=== PATIENT | female | born 1995 | race Caucasian/White ===

== ENCOUNTER → 2017-09-19 | Outpatient (CLI) | payer OTHER ==
[~2017-09-19] MED LIST: LEVOTHYROXIN0.025 M1 PO; MACROBID100 M1 PO; NOVOLIN N100 U/ML SC; NOVOLOG10 ML IV
--- NOTE | ~2017-09-19 | EKG ---
[place], [place] ELECTROCARDIOGRAM REPORT NAME: KYRA BUSBY UNIT #: [id number] ROOM: DOCTOR: JANETT WADE MD BIRTHDATE: [birth year] DOS: 09/19/2017 TIME: 12:42:42 RATE AND RHYTHM: Normal sinus rhythm at 81 beats per minute. GA interval 167 milliseconds, QRS duration 102 milliseconds. Corrected QT interval is 411 milliseconds, QRS axis is -10. IMPRESSION: 1. Normal sinus rhythm. 2. Low voltage in precordial leads. 3. Essentially normal EKG. JANETT WADE MD CM:EKGRPT:ELECTROCARDIOGRAM REPORT [id number] JANETT WADE MD
== END | disposition home or self-care (01) ==
LOC: LAB 12:08
DX: I45.6 Pre-excitation syndrome (principal); E10.9 Type 1 diabetes mellitus without complications

== ENCOUNTER 2019-04-19 15:48 | Inpatient (IN) | payer OTHER ==
[~2019-04-19] VITALS: Ht 167.6 cm; Wt 60.4 kg
[~2019-04-19 15:48] MED LIST changes: -LEVOTHYROXIN0.025 M1 PO; +NOVOLIN 70100 UNIT/1 SQ; -NOVOLOG10 ML IV; +NOVOLOG10 ML SQ; +SEPTDS PO; +Synthroid,Levo50 MCG PO
[2019-04-19 15:52] VITALS: BP 142/86
[2019-04-19 16:27] LABS: HEMATOCRIT 42.8 % (37.0-47.0); HEMOGLOBIN 14.8 g/dl (12.0-16.0); MEAN CELL VOLUME 91.1 fl (81.0-99.0); MEAN CORPUSCULAR HGB 31.5 pg (27.0-31.0); MEAN CORPUSCULAR HGB CONC 34.6 g/dl (33.0-37.0); MEAN PLATELET VOLUME 11.3 fl (9.6-12.3); PLATELET COUNT AUTOMATED 299 10*3/uL (130-400); RED CELL DISTRI WIDTH 11.9 % (0-14.5); WHITE BLOOD COUNT 26.1 10*3/uL (4.8-10.8)
[2019-04-19 16:47] LABS: PLATELET SUFFICIENCY NORMAL (NORMAL); TOTAL CELLS COUNTED 100 #CELLS; VACUOLATION OF NEUTROPHILS SLIGHT
[2019-04-19 16:49] VITALS: BP 126/78
[2019-04-19 17:04] LABS: ALBUMIN 4.3 gm/dl (3.1-4.5); CREATININE 1.37 mg/dL (0.55-1.02); POTASSIUM 4.4 mmol/L (3.5-5.1); TOTAL PROTEIN 8.3 gm/dL (6.4-8.2)
--- NOTE | 2019-04-19 17:23 | NUR ---
PT AWARE THAT REQUIRE A URINE SAMPLE FOR ANALYSIS,PT RESTING IN EXAM BED,SAFETY PRECAUTIONS INTACT AND CALL LIGHT WITHIN REACH.
[2019-04-19 17:51] LABS: ABG O2 SATURATION 98.1 % (95-97); ARTERIAL BLOOD GAS PCO2 15.2 mmHg (35-45); ARTERIAL BLOOD GAS PH 7.284 (7.35-7.45)
[2019-04-19 17:53] LABS: ABG BASE EXCESS -18.3 mmol/L (-2.0-2.0)
[2019-04-19 18:36] VITALS: BP 106/76
[2019-04-19 18:40] VITALS: BP 113/69
[2019-04-19 18:40] LABS: BILIRUBIN NEGATIVE (NEGATIVE); BLOOD 1+ (NEGATIVE); CLARITY CLEAR (CLEAR); COLOR YELLOW (YELLOW); GLUCOSE 2+ (NEGATIVE); KETONE 3+ (NEGATIVE); LEUKO ESTERASE TRACE (NEGATIVE); NITRITE NEGATIVE (NEGATIVE); PH 5.5 (5.0-9.0); SPECIFIC GRAVITY >= 1.030 (1.005-1.030); UROBILINOGEN 0.2 E.U./dl (0.2-1.0)
--- NOTE | 2019-04-19 18:40 | NUR ---
A 23, admitted to 5E, under the services of JANETT Bender MD with a diagnosis of DKA. Chief complaint is HYPERGLYCEMIA. Patient arrived via bed from ER. Monitor applied. Initial assessment completed. Vital signs taken and recorded. JANETT BENDER MD notified of admission to the unit. Orders received. See assessment for past medical history, medications and allergies. Patient and/or family oriented to unit. Clothing/patient valuable form completed. JUSTINA KEENE
--- NOTE | 2019-04-19 18:45 | NUR ---
PATIENT REFUSING TO PLACE STATION CAPTAIN ON AT THIS TIME, WANTS TO CHANGE IN TO [place]. INFORMED TO INFORM NURSE ONCE DONE, PRIVACY GIVEN
--- NOTE | 2019-04-19 18:45 | NUR ---
FINGERSTICK BGM TAKEN AT THIS TIME OF 344. MADE AWARE.
[2019-04-19 18:56] LABS: BACTERIA 1+
--- NOTE | 2019-04-19 18:59 | NUR ---
INFORMED OF PATIENT HOME MEDICATIONS ARE VERIFIED BY PATIENT. PATIENT REQUESTING DIET, DR PIPER STATED AT THIS TIME ONLY SIPS OF WATER WITH MEDS AND ICE CHIPS.
--- NOTE | 2019-04-19 19:30 | NUR ---
ASSUMED CARE OF PATIENT. PATIENT CURRENTLY ON AN INSULIN DRIP AT 5 UNIT/HR. PATIENT APPEARS TIRED AND HAS GENERALIZED DISCOMFORT UPON ASSESSMENT. PATIENT ON THE MONITOR, HOB ELEVATED. NEW 22G IV ESTABLISHED IN THE [place]IRE[place].
[2019-04-19 20:00] VITALS: BP 113/69
--- NOTE | 2019-04-19 20:00 | NUR ---
INSULIN DRIP INCREASED TO 6 UNIT/HR PER PROTOCOL. IV FLUIDS STARTED AT THIS TIME.
--- NOTE | 2019-04-19 21:07 | NUR ---
INSULIN GTT INCREASED TO 7 UNIT/HR PER PROTOCOL.
[2019-04-19 22:55] LABS: BUN 28 mg/dl (7-24); CHLORIDE 109 mmol/L (98-107); CREATININE 1.08 mg/dL (0.55-1.02); POTASSIUM 3.8 mmol/L (3.5-5.1); SODIUM 136 mmol/L (136-145)
[2019-04-20] VITALS: BP 107/65
[2019-04-20 02:02] LABS: BUN 26 mg/dl (7-24); CHLORIDE 110 mmol/L (98-107); CREATININE 1.03 mg/dL (0.55-1.02); POTASSIUM 3.9 mmol/L (3.5-5.1); SODIUM 137 mmol/L (136-145)
[2019-04-20 07:12] LABS: BASO % 0.1 % (0.0-1.0); EOS % 0.1 % (1.0-4.0); HEMATOCRIT 37.8 % (37.0-47.0); HEMOGLOBIN 13.3 g/dl (12.0-16.0); LYMPH # 1.2 10*3/uL (1.3-4.4); LYMPH % 9.1 % (27.0-41.0); MEAN CELL VOLUME 89.6 fl (81.0-99.0); MEAN CORPUSCULAR HGB 31.5 pg (27.0-31.0); MEAN CORPUSCULAR HGB CONC 35.2 g/dl (33.0-37.0); MEAN PLATELET VOLUME 10.9 fl (9.6-12.3); MONO % 7.7 % (3.0-9.0); NEUT # 11.2 10*3/uL (2.3-7.9); NEUT % 82.4 % (47.0-73.0); PLATELET COUNT AUTOMATED 254 10*3/uL (130-400); RED BLOOD COUNT 4.22 10*6/uL (4.10-5.10); WHITE BLOOD COUNT 13.6 10*3/uL (4.8-10.8)
[2019-04-20 07:26] LABS: BUN 21 mg/dl (7-24); CHLORIDE 110 mmol/L (98-107); CREATININE 0.94 mg/dL (0.55-1.02); PHOSPHOROUS 1.2 mg/dL (2.5-4.9); POTASSIUM 3.9 mmol/L (3.5-5.1); SODIUM 135 mmol/L (136-145)
--- NOTE | 2019-04-20 07:46 | NUR ---
INSULIN DRIP STOPPED PER DR. WADE ORDER. BSG AT 7-79, MADE AWARE ANION GAP IS 4 AT THIS TIME. HAD PT ORDER BREAKFAST. WILL RECHECK IN 1 HOUR. MOTHER AT HER SIDE. CALL LIGHT IN REACH.
--- NOTE | 2019-04-20 09:00 | NUR ---
Busperson in to talk to patient. Patient states lives at home with her mother. There are 14 steps in the home. Physician: Dr. Narinder Doe [facility]acy: [facility] Home health services: none Patient's level of ADLs: INDEPENDENT Patient has working utilities: yes DME: none Follow-up physician's appointment after d/c: she prefers to make her own follow up appt after discharge Does patient want to access PORTAL?: no Discharge plan discussed with patient. She lives at home with her mother. She is independent in her ADLs and ambulation. Discussed home health care services and she denies any home needs at this time. When medically stable she will be discharged to home. CHRISTIAN RIVERO
--- NOTE | 2019-04-20 09:00 | NUR ---
BSG-165, SEE EMAR. IVF INFUSING WITH NO PROBLEM. PT ATE MAYBE 10 MINUTES PRIOR. SPOKE WITH DR. WADE AWARE OF BSG. ORDERED PT HUMULIN N. CHECK BSG EVERY 2 HOURS AND CALL WITH RESULT. SKIN W/D. NO C/O A TTHIS TIME.
--- NOTE | 2019-04-20 09:30 | NUR ---
PT TOLERATED ROUTINE INSULIN. CALL LIGHT IN REACH. SKIN W/D.
--- NOTE | 2019-04-20 10:00 | NUR ---
LAB WORK DRAWN AND ANION GAP IS AT 9. BLOOD SUGAR 243.
[2019-04-20 10:32] LABS: BUN 19 mg/dl (7-24); CHLORIDE 107 mmol/L (98-107); CREATININE 0.97 mg/dL (0.55-1.02); POTASSIUM 4.2 mmol/L (3.5-5.1); SODIUM 133 mmol/L (136-145)
--- NOTE | 2019-04-20 11:30 | NUR ---
IV STOPPED AT THIS ITME.
[2019-04-20 12:00] VITALS: BP 110/76
--- NOTE | 2019-04-20 12:00 | NUR ---
DINESH WADE WITH BSG-293. START NS @80 AND GIVE NOVOLOG 10 UNITS SUB C
[2019-04-20 12:19] LABS: BUN 22 mg/dl (7-24); CHLORIDE 106 mmol/L (98-107); CREATININE 0.99 mg/dL (0.55-1.02); POTASSIUM 4.3 mmol/L (3.5-5.1); SODIUM 135 mmol/L (136-145)
--- NOTE | 2019-04-20 14:00 | NUR ---
PT RESTING IN BED. STATES SHE ATE HER LUNCH. TOLERATED ROUTINE MED WITH NO PROBLEM. IVF INFUSING WITH NO PROBLEM. SKIN W/D. CALL LIGHT IN REACH.
[2019-04-20 16:00] VITALS: BP 119/73
--- NOTE | 2019-04-20 16:28 | NUR ---
BSG 167 WITH NS INFUSING. NO COMPLAINTS VOICED. CALL LIGHT IN REACH.
[2019-04-20 19:35] LABS: BUN 18 mg/dl (7-24); CHLORIDE 108 mmol/L (98-107); CREATININE 0.78 mg/dL (0.55-1.02); POTASSIUM 3.8 mmol/L (3.5-5.1); SODIUM 136 mmol/L (136-145)
[2019-04-20 20:00] VITALS: BP 121/68
--- NOTE | 2019-04-20 20:54 | NUR ---
DR. WADE NOTIFIED OF PT'S GAP OF 10. T.O. RCVD TO CONTINUE IVF, BMP IN AM, AND HUMALOG INSULIN 5 UNITS SQ NOW.
--- NOTE | 2019-04-20 23:15 | NUR ---
BEDSIDE REPORT RECEIVED FROM DAYLIGHT NURSE. PT ASLEEP AT THIS TIME. RESPIRATIONS EASY AND UNLABORED. IV FLUIDS INFUSING INTO PT'S IV WITHOUT DIFFICULTY. PT DEMONSTRATES NO SIGN OF DISTRESS. CALL LIGHT IN REACH.
[2019-04-21] VITALS: BP 116/73
--- NOTE | 2019-04-21 03:47 | NUR ---
24 HR chart check completed.
[2019-04-21 06:33] LABS: BUN 14 mg/dl (7-24); CHLORIDE 110 mmol/L (98-107); POTASSIUM 3.5 mmol/L (3.5-5.1); SODIUM 140 mmol/L (136-145)
[2019-04-21 12:00] VITALS: BP 125/74
--- NOTE | 2019-04-21 12:20 | NUR ---
Discharge instructions reviewed with patient/family. Patient receptive and verbalizes understanding. Follow-up care arranged. Written instructions given to patient/family. Patient along with her mother were educated on new prescriptions and to follow up with Dr. Doe on Thursday. Patient ambulated from unit with all personal belongings accounted for. ERIC FERRIS
== END 2019-04-21 12:20 | disposition home or self-care (01) | DRG 637 ==
LOC: ED 15:48 → 5E 18:13
PROVIDERS: Emergency Medicine; Internal Medicine; ADMIT Internal Medicine
DX: E13.10 Other specified diabetes mellitus with ketoacidosis without coma (principal); R65.11 Systemic inflammatory response syndrome (SIRS) of non-infectious origin with acute organ dysfunction; N17.9 Acute kidney failure, unspecified; E87.1 Hypo-osmolality and hyponatremia; E03.9 Hypothyroidism, unspecified; Z91.040 Latex allergy status; Z87.440 Personal history of urinary (tract) infections; Z83.3 Family history of diabetes mellitus; Z82.49 Family history of ischemic heart disease and other diseases of the circulatory system; Z83.49 Family history of other endocrine, nutritional and metabolic diseases; Z91.018 Allergy to other foods; Z79.4 Long term (current) use of insulin; Z79.890 Hormone replacement therapy

== ENCOUNTER 2019-04-24 03:27 | Inpatient (IN) | payer OTHER ==
[~2019-04-24] VITALS: Ht 167.6 cm; Wt 62.1 kg
[2019-04-24 03:37] VITALS: BP 138/95
[2019-04-24 04:02] LABS: HEMOGLOBIN 13.2 g/dl (12.0-16.0); MEAN CELL VOLUME 97.9 fl (81.0-99.0); MEAN CORPUSCULAR HGB 31.5 pg (27.0-31.0); MEAN CORPUSCULAR HGB CONC 32.2 g/dl (33.0-37.0); MEAN PLATELET VOLUME 10.8 fl (9.6-12.3); PLATELET COUNT AUTOMATED 420 10*3/uL (130-400); RED BLOOD COUNT 4.19 10*6/uL (4.10-5.10); RED CELL DISTRI WIDTH 12.3 % (0-14.5); WHITE BLOOD COUNT 35.9 10*3/uL (4.8-10.8)
[2019-04-24 04:21] LABS: ALBUMIN 3.7 gm/dl (3.1-4.5); ALKALINE PHOSPHATASE 112 U/L (45-117); BUN 12 mg/dl (7-24); CHLORIDE 106 mmol/L (98-107); CREATININE 1.19 mg/dL (0.55-1.02); LIPASE 41 U/L (73-393); POTASSIUM 4.9 mmol/L (3.5-5.1); SGOT/AST 14 IU/L (3-35); SGPT/ALT 25 U/L (12-78); SODIUM 137 mmol/L (136-145); TOTAL PROTEIN 7.1 gm/dL (6.4-8.2)
[2019-04-24 04:25] LABS: BETA-HCG, QUANT < 1.0 mIU/mL (1-3); TROPONIN I < 0.015 ng/ml (<0.045)
[2019-04-24 04:27] LABS: PLATELET SUFFICIENCY HIGH (NORMAL); TOTAL CELLS COUNTED 100 #CELLS
[2019-04-24 05:11] LABS: ABG HCO3 1.6 mmol/l (22-26); ABG O2 SATURATION 97.1 % (95-97)
[2019-04-24 05:15] LABS: ARTERIAL BLOOD GAS PH 6.899 (7.35-7.45)
[2019-04-24 05:16] LABS: ARTERIAL BLOOD GAS PCO2 8.8 mmHg (35-45)
--- NOTE | 2019-04-24 05:17 | NUR ---
CRITICAL LAB RESULTS PH 6.899, PCO2 8.8, ABG BASE EXCESS -31.4 (TO HIGH TO READ) DR. MEI AWARE
[2019-04-24 05:28] LABS: BILIRUBIN NEGATIVE (NEGATIVE); BLOOD 3+ (NEGATIVE); CLARITY CLEAR (CLEAR); COLOR YELLOW (YELLOW); GLUCOSE 3+ (NEGATIVE); KETONE 3+ (NEGATIVE); LEUKO ESTERASE NEGATIVE (NEGATIVE); NITRITE NEGATIVE (NEGATIVE); PH 5.5 (5.0-9.0); SPECIFIC GRAVITY 1.025 (1.005-1.030); UROBILINOGEN 0.2 E.U./dl (0.2-1.0)
[2019-04-24 05:40] VITALS: BP 149/84
[2019-04-24 05:40] LABS: RBC 21-30 rbc/hpf (0-2)
[2019-04-24 06:00] VITALS: BP 109/48
--- NOTE | 2019-04-24 06:00 | NUR ---
A 23, admitted to ICCU, under the services of CIPRIANO Wright MD with a diagnosis of DKA. Chief complaint is NAUSEA AND VOMITING. Patient arrived via stretcher from ER. Monitor applied. Initial assessment completed. Vital signs taken and recorded. CIPRIANO WRIGHT MD notified of admission to the unit. Orders received. See assessment for past medical history, medications and allergies. Patient and/or family oriented to unit. [facility] visitation policy reviewed. Clothing/patient valuable form completed. TAMIA LANGSTON
--- NOTE | 2019-04-24 06:53 | NUR ---
DR. FRAUSTO AWARE OF LACTIC ACID OF 4.0.
[2019-04-24 12:00] VITALS: BP 106/68
[2019-04-24 12:12] LABS: BUN 7 mg/dl (7-24); CHLORIDE 118 mmol/L (98-107); CREATININE 0.74 mg/dL (0.55-1.02); SODIUM 146 mmol/L (136-145)
[2019-04-24 16:00] VITALS: BP 98/59
[2019-04-24 16:17] LABS: BUN 7 mg/dl (7-24); CHLORIDE 117 mmol/L (98-107); CREATININE 0.74 mg/dL (0.55-1.02); POTASSIUM 3.7 mmol/L (3.5-5.1); SODIUM 145 mmol/L (136-145)
--- NOTE | 2019-04-24 17:27 | NUR ---
DR FRAUSTO UPDATED ON CRITICAL LAB VALUES. ORDERS RECIEVED AND CARRIED OUT.
--- NOTE | 2019-04-24 19:05 | NUR ---
DR. FRAUSTO NOTIFIED OF PT'S VQ RESULTS, HEPARIN TO REMAIN ON UNTIL US OF LOWER EXTREMITIES IS DONE ON (PENDING THE RESULTS). WILL CONTINUE TO MONITOR.
[2019-04-24 20:00] VITALS: BP 105/62
--- NOTE | 2019-04-24 20:07 | NUR ---
PT. REFUSED PM BED BATH AND LINEN CHANGE. TAMIA LANGSTON RN
--- NOTE | 2019-04-24 20:16 | NUR ---
PT. RESTING IN BED, SLEEPING INTERMITTENTLY. INSULIN DRIP REMAINS AT 1UNIT/HR VIA RAN ALONG WITH BICARB DRIP. LUNGS CLEAR BILAT, PULSE OX 98% ON RA. ABDOMEN SOFT ,NONDISTENDED AND NORMO. NO PERIPHERAL EDEMA NOTED. PT. DENIES NAUSEA AND VOMITING CURRENTLY. TAMIA LANGSTON RN
[2019-04-25] VITALS: BP 104/64
--- NOTE | 2019-04-25 03:24 | NUR ---
PT. GIVEN TYLENOL ORDERED FOR TEMP OF 101.3. TAMIA LANGSTON RN
--- NOTE | 2019-04-25 03:58 | NUR ---
PT'S REPEAT TEMP 100.8, TYLENOL MILDLY EFFECTIVE. WILL CONTINUE TO MONITOR.
[2019-04-25 04:00] VITALS: BP 103/57
[2019-04-25 06:13] LABS: ALBUMIN 2.5 gm/dl (3.1-4.5); ALKALINE PHOSPHATASE 70 U/L (45-117); BASO % 0.1 % (0.0-1.0); BUN 4 mg/dl (7-24); CHLORIDE 115 mmol/L (98-107); CREATININE 0.72 mg/dL (0.55-1.02); HEMATOCRIT 28.7 % (37.0-47.0); HEMOGLOBIN 9.7 g/dl (12.0-16.0); LYMPH # 1.3 10*3/uL (1.3-4.4); MEAN CORPUSCULAR HGB 30.8 pg (27.0-31.0); MEAN CORPUSCULAR HGB CONC 33.8 g/dl (33.0-37.0); MEAN PLATELET VOLUME 11.2 fl (9.6-12.3); MONO # 0.7 10*3/uL (0.1-1.0); MONO % 6.5 % (3.0-9.0); NEUT # 8.9 10*3/uL (2.3-7.9); RED BLOOD COUNT 3.15 10*6/uL (4.10-5.10); RED CELL DISTRI WIDTH 12.5 % (0-14.5); SGOT/AST 24 IU/L (3-35); SGPT/ALT 19 U/L (12-78); SODIUM 143 mmol/L (136-145)
[2019-04-25 06:21] LABS: MEAN CELL VOLUME 91.1 fl (81.0-99.0); PLATELET COUNT AUTOMATED 228 10*3/uL (130-400)
[2019-04-25 06:32] LABS: POTASSIUM 2.6 mmol/L (3.5-5.1)
[2019-04-25 08:00] VITALS: BP 109/64
--- NOTE | 2019-04-25 08:00 | NUR ---
TAKEN DOWN TO X-RAY FOR CT CHEST
--- NOTE | 2019-04-25 08:49 | NUR ---
ECHO BEING DONE IN ROOM.
[2019-04-25] MEDS ORDERED: HUMULIN 70/30 703 M1 SC (11:42)
[2019-04-25 12:00] VITALS: BP 100/55
--- NOTE | 2019-04-25 15:45 | NUR ---
ATTEMPTED ANOTHER IV SITE X 2 WITH NO SUCCESS.
[2019-04-25 16:00] VITALS: BP 109/62
[2019-04-25 18:36] LABS: BUN 3 mg/dl (7-24); CHLORIDE 113 mmol/L (98-107); CREATININE 0.68 mg/dL (0.55-1.02); POTASSIUM 2.7 mmol/L (3.5-5.1); SODIUM 141 mmol/L (136-145)
--- NOTE | 2019-04-25 19:00 | NUR ---
DR. FRAUSTO NOTIFIED OF LABS. NEW ORDERS RECEIVED
--- NOTE | 2019-04-25 19:40 | NUR ---
DR FRAUSTO CALLED WITH ECHO RESULT - ORDERS FOR CONSULTS & MEDICATIONS... MESSAGE LEFT FOR CARDIOLOGY - ID CALLED ABOUT [facility]
--- NOTE | 2019-04-25 19:50 | NUR ---
SPOKE WITH DR MANZANO - SONAM AFTER MIDNIGHT IN CASE DR CHINO CAN DO A MAKENNA TOMORROW AFTERNOON. NO FURTHER ORDERS
[2019-04-25 20:00] VITALS: BP 109/70
--- NOTE | 2019-04-25 20:00 | NUR ---
IV started left forearm with #22 protective cath after 1 attempts. Site prepped with Chloroprep. Sterile dressing applied. Patient tolerated procedure well. MESSI LERNER
--- NOTE | 2019-04-25 20:33 | NUR ---
ID CALLED IN - CASE REVIEWED NO NEW ORDERS
--- NOTE | 2019-04-25 23:20 | NUR ---
INSULIN DRIP STOPPED AFTER GLUCOSE 78 ON 2 UNITS/HR. BICARB & KCL DRIPS CONTINUE PER ORDERS
[2019-04-26] VITALS (10 sets, daily range): BP systolic 103–116; BP diastolic 61–75
--- NOTE | 2019-04-26 02:01 | NUR ---
INSULIN DRIP RESTARTED AT 2 UNITS/HR SUGAR UP TO 340 & HR SUSTAINED LOW 110-120'S. PER PT FEELS HEART FASTER.
--- NOTE | 2019-04-26 04:05 | NUR ---
PATIENT GOT UP TO BSC AND HEART RATE JUMPED >10 POINTS. PATIENT CAN FEEL PRESSURE IN HER CHEST WHEN HEART RATE IS UP
[2019-04-26 05:59] LABS: BASO % 0.1 % (0.0-1.0); EOS % 0.2 % (1.0-4.0); HEMATOCRIT 29.6 % (37.0-47.0); HEMOGLOBIN 10.3 g/dl (12.0-16.0); LYMPH # 1.3 10*3/uL (1.3-4.4); LYMPH % 15.6 % (27.0-41.0); MEAN CELL VOLUME 88.1 fl (81.0-99.0); MEAN CORPUSCULAR HGB 30.7 pg (27.0-31.0); MEAN CORPUSCULAR HGB CONC 34.8 g/dl (33.0-37.0); MEAN PLATELET VOLUME 10.7 fl (9.6-12.3); MONO # 0.6 10*3/uL (0.1-1.0); MONO % 7.6 % (3.0-9.0); NEUT # 6.3 10*3/uL (2.3-7.9); NEUT % 75.7 % (47.0-73.0); PLATELET COUNT AUTOMATED 229 10*3/uL (130-400); RED BLOOD COUNT 3.36 10*6/uL (4.10-5.10); RED CELL DISTRI WIDTH 12.5 % (0-14.5); WHITE BLOOD COUNT 8.3 10*3/uL (4.8-10.8)
[2019-04-26 06:13] LABS: BUN 3 mg/dl (7-24); CHLORIDE 114 mmol/L (98-107); CREATININE 0.62 mg/dL (0.55-1.02); SODIUM 144 mmol/L (136-145)
[2019-04-26 06:21] LABS: FREE T4 1.04 ng/dl (0.76-1.46)
[2019-04-26 06:26] LABS: ACT PARTIAL THROMBO TIME 26.9 SECONDS (20.0-32.1)
--- NOTE | 2019-04-26 07:44 | NUR ---
DR FRAUSTO IN TO SEE PT. UPDATED HER ON PT'S CONDITION AND PLAN OF CARE. NEW ORDERS RECEIVED.
--- NOTE | 2019-04-26 08:16 | NUR ---
INSULIN GTT DECREASED TO 2 UNITS/HR FOR BLOOD SUGAR OF 109. WILL CONTINUE TO MONITOR PT.
--- NOTE | 2019-04-26 09:00 | NUR ---
Paraffiner in to talk to patient. Patient states lives at home with her mother. There are 14 steps in the home. Physician: Dr. Narinder Doe [facility] Home health services: none Patient's level of ADLs: INDEPENDENT Patient has working utilities: yes DME: none Follow-up physician's appointment after d/c: she prefers to make her own follow up appt after discharge Does patient want to access PORTAL?: no Discharge plan discussed with patient. She lives at home with her mother. She is independent in her ADLs and ambulation. Discussed home health care services and she denies any home needs at this time. When medically stable she will be discharged to home. CHRISTIAN RIVERO
--- NOTE | 2019-04-26 09:31 | NUR ---
DR FRAUSTO UPDATED ON PT'S BEDSIDE GLUCOSE OF 78. ORDERED TO D/C INSULIN GTT. WILL CONTINNUE TO MONITOR PT.
--- NOTE | 2019-04-26 11:41 | NUR ---
PT TO SURGERY VA BED. PT'S MOTHER HERE AND UPDATED ON PT'S CONDITION AND PLAN OF CARE.
--- NOTE | 2019-04-26 13:55 | NUR ---
PT RETURNED FROM SURGERY. VSS. DIET RESUMED.
--- NOTE | 2019-04-26 14:16 | NUR ---
UPDATED DR RODRIGUEZ OF PT'S RETURN FROM SURGERY,NEGATIVE MAKENNA RESULTS, AND CURRENT BLOOD SUGAR OF 339. NEW ORDERS RECEIVED. LEFT MESSAGE WITH DR GUERRERO R/T PT'S MOTHER LORENZA HERE BECAUSE HE HAD WANTED TO TALK WITH HER R/T PT EARLIER TODAY.
--- NOTE | 2019-04-26 16:51 | NUR ---
PT RESTING. PT DENIES NAUSEA AT PRESENT TIME. PT ORDERED FOR DINNER.
--- NOTE | 2019-04-26 18:00 | NUR ---
PT REFUSED TO GIVE CONSENT FOR HIV TESTING.
--- NOTE | 2019-04-26 18:00 | NUR ---
PT ATE WELL FOR DINNER.
--- NOTE | 2019-04-26 18:05 | NUR ---
MESSAGE LEFT WITH DR ARTHUR'S ANSWERING SERVICE THAT PT IS REFUSING HIV TESTING.
--- NOTE | 2019-04-26 18:14 | NUR ---
PT RESTING. NO ACUTE DISTRESS NOTED.
--- NOTE | 2019-04-26 20:13 | NUR ---
PT. RESTING IN BED, NAPPING AT TIMES. HEP LOCKS IN RAN AND LA ASYMPT. LUNGS CLEAR BUT DIMINISHED BILAT, PULSE OX 100% ON RA. ABDOMEN SOFT, NONDISTENDED AND NORMO. NO PERIPHERAL EDEMA NOTED. RESP. EASY AND REG, NO DISTRESS. TAMIA LANGSTON RN
[2019-04-26 21:29] LABS: BUN 4 mg/dl (7-24); CHLORIDE 111 mmol/L (98-107); PHOSPHOROUS 1.1 mg/dL (2.5-4.9); POTASSIUM 2.9 mmol/L (3.5-5.1); SODIUM 141 mmol/L (136-145)
--- NOTE | 2019-04-26 21:30 | NUR ---
DR. WADE NOTIFIED OF BMP AND PHOS RESULTS, ORDERS RECEIVED. TAMIA LANGSTON RN
[2019-04-27] VITALS: BP 95/55
--- NOTE | 2019-04-27 01:03 | NUR ---
OBTAINED PTS BEDSIDE GLUCOSE PER DR. WADE, AT 0100. 0100 BEDSIDE GLUCOSE 99, NO COVERAGE NEEDED
[2019-04-27 04:00] VITALS: BP 112/71
--- NOTE | 2019-04-27 04:19 | NUR ---
PT. STILL REFUSING HIV DRAW. TAMIA LANGSTON RN
[2019-04-27 05:01] LABS: BASO % 0.3 % (0.0-1.0); EOS # 0.1 10*3/uL (0.0-0.4); EOS % 1.1 % (1.0-4.0); HEMATOCRIT 28.7 % (37.0-47.0); LYMPH # 1.5 10*3/uL (1.3-4.4); LYMPH % 23.9 % (27.0-41.0); MEAN CELL VOLUME 88.3 fl (81.0-99.0); MEAN CORPUSCULAR HGB 30.8 pg (27.0-31.0); MEAN CORPUSCULAR HGB CONC 34.8 g/dl (33.0-37.0); MEAN PLATELET VOLUME 10.7 fl (9.6-12.3); MONO # 0.6 10*3/uL (0.1-1.0); MONO % 9.7 % (3.0-9.0); NEUT # 4.1 10*3/uL (2.3-7.9); NEUT % 64.5 % (47.0-73.0); PLATELET COUNT AUTOMATED 256 10*3/uL (130-400); RED BLOOD COUNT 3.25 10*6/uL (4.10-5.10); RED CELL DISTRI WIDTH 12.8 % (0-14.5); WHITE BLOOD COUNT 6.4 10*3/uL (4.8-10.8)
[2019-04-27 05:31] LABS: ALBUMIN 2.6 gm/dl (3.1-4.5); BUN 3 mg/dl (7-24); CHLORIDE 111 mmol/L (98-107); CREATININE 0.55 mg/dL (0.55-1.02); PHOSPHOROUS 1.4 mg/dL (2.5-4.9); POTASSIUM 3.5 mmol/L (3.5-5.1); SGOT/AST 56 IU/L (3-35); SODIUM 141 mmol/L (136-145)
[2019-04-27 05:36] LABS: ALKALINE PHOSPHATASE 76 U/L (45-117); SGPT/ALT 40 U/L (12-78); TOTAL PROTEIN 5.4 gm/dL (6.4-8.2)
[2019-04-27 08:00] VITALS: BP 102/66
--- NOTE | 2019-04-27 08:00 | NUR ---
RESTING IN BED. DENIES ANY COMPLAINTS. VITALS STABLE. PULSE OX 97% ON ROOM AIR. LUNGS CLEAR BILATERALLY. NO EDEMA NOTED. HEP LOCK INTACT TO RAN AND LEFT ARM.
[2019-04-27 12:00] VITALS: BP 107/67
--- NOTE | 2019-04-27 15:10 | NUR ---
CRUCIBLE PACKER NOTIFIED OF ORDER TO DOWN GRADE TO C
[2019-04-27 16:00] VITALS: BP 108/69
--- NOTE | 2019-04-27 17:26 | NUR ---
RECEIVED PATIENT FROM ICU. REPORT GIVEN FROM GARIMA DEUTSCH. BELONGINGS WITH PATIENT.
--- NOTE | 2019-04-27 17:33 | NUR ---
Transferred to [facility] via bed.
[2019-04-27 20:00] VITALS: BP 106/75
--- NOTE | 2019-04-27 21:44 | NUR ---
PT SITTING UP IN BED. BSG-59, SEE EMAR. SKIN W/D. PT REFUSED DEXTROSE. SHE STATES WANTS SOME ICE CREAM AND POP AND WILL BRING IT UP. CALL LIGHT IN REACH.
--- NOTE | 2019-04-27 22:30 | NUR ---
SITTING UP AT BEDSIDE. BSG-100, SEE EMAR. CALL LIGHT IN REACH.
[2019-04-28] VITALS: BP 104/75
--- NOTE | 2019-04-28 00:05 | NUR ---
SITTING UP AT SIDE OF BED DRAWING. SKIN W/D. NO C/O AT THIS TIME. CALL LIGHT IN REACH. SEE SHIFT ASSESSMENT.
[2019-04-28 04:04] LABS: ANTI-STREPTOLYSIN O AB 006031 <20.0 IU/mL (0.0-200.0)
--- NOTE | 2019-04-28 04:17 | NUR ---
PT SLEEPING IN BED. SKIN W/D. BSG TAKEN-26 PER METER, TAKEN AGAIN WITH READING OF 20. STAT REFLUX ORDERED. D50 GIVEN. ASYMPTOMATIC, NO C/O. CALL LIGHT IN REACH.
--- NOTE | 2019-04-28 04:25 | NUR ---
LAB ON THE FLOOR TO DRAW BLOOD, PT SITTING UP IN BED EATING CRACKERS.
[2019-04-28 04:38] LABS: BASO % 0.5 % (0.0-1.0); EOS # 0.1 10*3/uL (0.0-0.4); EOS % 1.4 % (1.0-4.0); HEMATOCRIT 31.8 % (37.0-47.0); HEMOGLOBIN 11.3 g/dl (12.0-16.0); LYMPH # 1.1 10*3/uL (1.3-4.4); LYMPH % 26.4 % (27.0-41.0); MEAN CELL VOLUME 87.6 fl (81.0-99.0); MEAN CORPUSCULAR HGB 31.1 pg (27.0-31.0); MEAN CORPUSCULAR HGB CONC 35.5 g/dl (33.0-37.0); MEAN PLATELET VOLUME 10.3 fl (9.6-12.3); MONO # 0.4 10*3/uL (0.1-1.0); MONO % 9.2 % (3.0-9.0); NEUT # 2.6 10*3/uL (2.3-7.9); PLATELET COUNT AUTOMATED 244 10*3/uL (130-400); RED BLOOD COUNT 3.63 10*6/uL (4.10-5.10); RED CELL DISTRI WIDTH 12.8 % (0-14.5); WHITE BLOOD COUNT 4.3 10*3/uL (4.8-10.8)
[2019-04-28 04:57] LABS: ALBUMIN 2.9 gm/dl (3.1-4.5); BUN 2 mg/dl (7-24); CHLORIDE 106 mmol/L (98-107); PHOSPHOROUS 1.9 mg/dL (2.5-4.9); POTASSIUM 2.6 mmol/L (3.5-5.1); SGOT/AST 137 IU/L (3-35); SGPT/ALT 107 U/L (12-78); SODIUM 139 mmol/L (136-145)
--- NOTE | 2019-04-28 04:57 | NUR ---
CALLED DR. LEI MADE AWARE BSG-26 AND 20 THEN REFLUX ORDERED AND CAME BACK AT 225. MADE AWARE NO NEW ORDERS.
[2019-04-28 04:58] LABS: ALKALINE PHOSPHATASE 90 U/L (45-117); TOTAL PROTEIN 5.9 gm/dL (6.4-8.2)
--- NOTE | 2019-04-28 04:59 | NUR ---
MADE PT AWARE OF REFLUX SHE IS GONNA GO BACK TO SLEEP REFUSES COVERAGE.
--- NOTE | 2019-04-28 05:46 | NUR ---
CALLED DR. LEI MADE AWARE POTASSIUM, LIVER ENZYMES AND PHOS LEVEL.
--- NOTE | 2019-04-28 06:12 | NUR ---
SLEEPING IN BED, AWAKENS EASILY. BSG-137, SEE EMAR. NO C/O AT THIS TIME. TOLERATED ROUTINE MED WITH NO PROBLEM. CALL LIGHT IN REACH.
[2019-04-28 08:00] VITALS: BP 111/79
--- NOTE | 2019-04-28 09:00 | NUR ---
Traveling Inventory Associate in to see patient. No new needs or request at this time. She denies any home needs. When medically stable she will be discharged to home.
[2019-04-28 12:00] VITALS: BP 102/55
--- NOTE | 2019-04-28 13:39 | NUR ---
IN TO ROOM. PATIENT AWAKE, ALERT AND ORIENTED. FAMILY AT BEDSIDE. PT EAGER TO GO HOME. KCL AND K PHOS RUNNING. PT TOLERATING WELL. NO STATED COMPLAINTS AND NO S/S OF DISTRESS OR SOB. BED IN LOWEST LOCKED POSITION AND CALL LIGHT WITHIN REACH. WILL CONTINUE TO MONITOR.
[2019-04-28 16:00] VITALS: BP 115/74
[2019-04-28 16:10] LABS: ANTI-DSDNA ANTIBODIES 096339 <1 IU/mL (0-9)
--- NOTE | 2019-04-28 17:04 | NUR ---
IN TO ROOM. KCL AND K PHOS STILL RUNNING. PT STATES THERE IS PAIN AT IV SITE. ICE PACK PROVIDED. NO OTHER STATED COMPLAINTS. NO S/S OF DISTRESS OR SOB. BED IN LOWEST LOCKED POSITION AND CALL LIGHT WITHIN REACH.
--- NOTE | 2019-04-28 19:00 | NUR ---
RECEIVED REPORT ON PT. INSTRUCTIONS GIVEN TO CALL DR HORTON WITH [facility] WHEN THEY ARE AVAILABLE AT 1930. PT SITTING UP IN BED, ALERT ORIENTED AND PLEASANT WITH NO COMPLAINTS. WILL CONITINUE TO MONITOR. CALL LIGHT IN REACH.
[2019-04-28 20:01] LABS: ALBUMIN 3.2 gm/dl (3.1-4.5); ALKALINE PHOSPHATASE 117 U/L (45-117); BUN 2 mg/dl (7-24); CHLORIDE 106 mmol/L (98-107); CREATININE 0.54 mg/dL (0.55-1.02); SGOT/AST 318 IU/L (3-35); SGPT/ALT 199 U/L (12-78); SODIUM 139 mmol/L (136-145); TOTAL PROTEIN 6.6 gm/dL (6.4-8.2)
[2019-04-28 20:09] LABS: POTASSIUM 3.6 mmol/L (3.5-5.1)
--- NOTE | 2019-04-28 20:10 | NUR ---
CALLED DR HORTON REGARDING LABS. DR HORTON STATES THAT PT CAN BE DISCHARGED TO HOME AND FOR PATIENT TO CONTINUE HOME MEDICATIONS. PT IS TO FOLLOW UP WITH DR WADE IN THE MORNING. WILL NOTIFY PATIENT.
--- NOTE | 2019-04-28 20:33 | NUR ---
Discharge instructions reviewed with patient/family. Patient receptive and verbalizes understanding. Follow-up care arranged. Written instructions given to patient/family. DENVER REESNDIZ
[2019-04-29 05:04] LABS: ANTI-STREPTOLYSIN O AB 006031 <20.0 IU/mL (0.0-200.0)
== END 2019-04-28 20:33 | disposition home or self-care (01) | DRG 637 ==
LOC: ED 03:27 → ICCU 05:16 → 5E 04-27 17:18
PROVIDERS: Emergency Medicine Emergency Medical Services; Internal Medicine; Internal Medicine Nephrology; Student in an Organized Health Care Education/Training Program; ADMIT Internal Medicine
PROC: B24BZZ4 Ultrasonography of Heart with Aorta, Transesophageal (ICD-10-PCS; principal; 2019-04-26)
DX: E10.10 Type 1 diabetes mellitus with ketoacidosis without coma (principal); E43 Unspecified severe protein-calorie malnutrition; R65.11 Systemic inflammatory response syndrome (SIRS) of non-infectious origin with acute organ dysfunction; E87.3 Alkalosis; N17.8 Other acute kidney failure; E03.9 Hypothyroidism, unspecified; E87.8 Other disorders of electrolyte and fluid balance, not elsewhere classified; D72.829 Elevated white blood cell count, unspecified; R00.0 Tachycardia, unspecified; E87.6 Hypokalemia; D64.9 Anemia, unspecified; D72.810 Lymphocytopenia; K20.9 Esophagitis, unspecified; E83.39 Other disorders of phosphorus metabolism; B34.9 Viral infection, unspecified; Z79.899 Other long term (current) drug therapy; Z79.4 Long term (current) use of insulin; Z87.440 Personal history of urinary (tract) infections; Z83.3 Family history of diabetes mellitus; Z82.49 Family history of ischemic heart disease and other diseases of the circulatory system; Z84.89 Family history of other specified conditions; Z68.22 Body mass index [BMI] 22.0-22.9, adult

== ENCOUNTER → 2019-04-29 | Outpatient (CLI) | payer OTHER ==
[~2019-04-29] MED LIST changes: +HUMULIN 70/30 703 M1 SC
[2019-04-29 14:05] LABS: BUN 4 mg/dl (7-24); CHLORIDE 100 mmol/L (98-107); CREATININE 0.74 mg/dL (0.55-1.02); SODIUM 134 mmol/L (136-145)
== END | disposition home or self-care (01) ==
LOC: LAB 13:32
PROVIDERS: Internal Medicine
DX: E10.9 Type 1 diabetes mellitus without complications (principal)

== ENCOUNTER → 2020-11-17 | Outpatient (CLI) | payer OTHER ==
[2020-11-17 13:08] LABS: ALBUMIN 3.5 gm/dl (3.1-4.5); BUN 8 mg/dl (7-24); CHLORIDE 104 mmol/L (98-107); CHOLESTEROL 148 mg/dL (<200); CREATININE 0.75 mg/dL (0.55-1.02); SGOT/AST 8 IU/L (3-35); SGPT/ALT 14 U/L (12-78); SODIUM 135 mmol/L (136-145); TOTAL PROTEIN 7.4 gm/dL (6.4-8.2)
[2020-11-17 13:14] LABS: ALKALINE PHOSPHATASE 141 U/L (45-117); FREE T4 1.05 ng/dl (0.76-1.46); HDL CHOLESTEROL 83 mg/dl (40-60); LDL CHOLESTEROL 49 mg/dL (9-159); TRIGLYCERIDES 82 mg/dl (<150); VLDL CHOLESTEROL 16 mg/dL (6-40)
[2020-11-18 08:16] LABS: CREATININE,URINE 110.6 mg/dL (Not Estab.)
== END | disposition home or self-care (01) ==
LOC: LAB 11:37
PROVIDERS: ATTEND Internal Medicine
DX: E10.9 Type 1 diabetes mellitus without complications (principal)

== ENCOUNTER → 2021-05-18 | Outpatient (CLI) | payer OTHER ==
[2021-05-18 13:06] LABS: BUN 7 mg/dl (7-24); CHLORIDE 105 mmol/L (98-107); CREATININE 0.83 mg/dL (0.55-1.02); POTASSIUM 4.3 mmol/L (3.5-5.1); SODIUM 138 mmol/L (136-145)
== END | disposition home or self-care (01) ==
LOC: LAB 11:54
PROVIDERS: ATTEND Internal Medicine
DX: E10.9 Type 1 diabetes mellitus without complications (principal)

== ENCOUNTER → 2022-01-25 | Outpatient (CLI) | payer OTHER | END | disposition home or self-care (01) | LOC: LAB 09:55 | PROVIDERS: ATTEND Internal Medicine | DX: E10.9 Type 1 diabetes mellitus without complications (principal) ==

== ENCOUNTER 2022-04-28 16:42 | Emergency (ER) | payer OTHER ==
[~2022-04-28] VITALS: Ht 167.6 cm; Wt 60.3 kg
[2022-04-28 19:59] LABS: BASO % 0.2 % (0.0-1.0); EOS % 0.1 % (1.0-4.0); HEMATOCRIT 43.8 % (37.0-47.0); LYMPH # 0.8 10*3/uL (1.3-4.4); MEAN CELL VOLUME 94.2 fl (81.0-99.0); MEAN CORPUSCULAR HGB CONC 32.9 g/dl (33.0-37.0); MEAN PLATELET VOLUME 11.2 fl (9.6-12.3); MONO # 0.5 10*3/uL (0.1-1.0); MONO % 5.3 % (3.0-9.0); NEUT # 8.5 10*3/uL (2.3-7.9); PLATELET COUNT AUTOMATED 239 10*3/uL (130-400); RED BLOOD COUNT 4.65 10*6/uL (4.10-5.10); RED CELL DISTRI WIDTH 12.2 % (0-14.5); WHITE BLOOD COUNT 9.9 10*3/uL (4.8-10.8)
[2022-04-28 20:18] LABS: ALKALINE PHOSPHATASE 123 U/L (45-117); BUN 7 mg/dl (7-24); CHLORIDE 103 mmol/L (98-107); CREATININE 0.75 mg/dL (0.55-1.02); POTASSIUM 4.3 mmol/L (3.5-5.1); SGOT/AST 15 IU/L (3-35); SGPT/ALT 17 U/L (12-78); SODIUM 138 mmol/L (136-145); TOTAL PROTEIN 7.5 gm/dL (6.4-8.2)
== END 2022-04-28 22:01 | disposition home or self-care (01) ==
LOC: ED 16:42
PROVIDERS: Emergency Medicine
DX: S09.90XA Unspecified injury of head, initial encounter (principal); R42 Dizziness and giddiness; E11.9 Type 2 diabetes mellitus without complications; Z91.018 Allergy to other foods; Z79.899 Other long term (current) drug therapy; Z79.4 Long term (current) use of insulin; Z98.890 Other specified postprocedural states; W19.XXXA Unspecified fall, initial encounter; Y93.89 Activity, other specified; Y92.89 Other specified places as the place of occurrence of the external cause; Y99.8 Other external cause status

== ENCOUNTER 2023-01-14 23:37 | Emergency (ER) | payer OTHER ==
[~2023-01-14] VITALS: Ht 167.6 cm; Wt 62.6 kg
[2023-01-15] MEDS ORDERED: AMOXICILLIN500 M2 PO (01:13)
== END 2023-01-15 01:26 | disposition home or self-care (01) ==
LOC: ED 23:37
DX: K08.89 Other specified disorders of teeth and supporting structures (principal); E03.9 Hypothyroidism, unspecified; E11.9 Type 2 diabetes mellitus without complications; Z79.4 Long term (current) use of insulin; Z91.018 Allergy to other foods; Z98.890 Other specified postprocedural states

== ENCOUNTER 2024-10-12 16:49 | Emergency (ER) | payer OTHER ==
[~2024-10-12] VITALS: Ht 167.6 cm; Wt 72.1 kg
[~2024-10-12 16:49] MED LIST changes: +AMOXICILLIN500 M2 PO
[2024-10-12] MEDS ORDERED: HYDROmorphone Hydrochloride 1 MG/ML SYR IV ONE (17:10)
[2024-10-12] MEDS ORDERED: PERCOCET 5-3251 EACH PO (18:19)
[2024-10-18] MEDS ORDERED: PERCOCET 5-3251 EACH PO (14:43)
== END 2024-10-12 18:24 | disposition home or self-care (01) ==
LOC: ED 16:49
DX: S42.302A Unspecified fracture of shaft of humerus, left arm, initial encounter for closed fracture (principal); S63.91XA Sprain of unspecified part of right wrist and hand, initial encounter; E11.9 Type 2 diabetes mellitus without complications; Z79.4 Long term (current) use of insulin; E03.9 Hypothyroidism, unspecified; Z91.018 Allergy to other foods; Z98.890 Other specified postprocedural states; V49.9XXA Car occupant (driver) (passenger) injured in unspecified traffic accident, initial encounter; Y93.89 Activity, other specified; Y92.410 Unspecified street and highway as the place of occurrence of the external cause; Y99.8 Other external cause status

== ENCOUNTER → 2024-10-14 | Outpatient (CLI) | payer OTHER, BC ==
[~2024-10-14] MED LIST changes: +PERCOCET 5-3251 EACH PO
== END | disposition home or self-care (01) ==
LOC: ORTHO 08:25
PROVIDERS: ATTEND Orthopaedic Surgery
DX: S62.667A Nondisplaced fracture of distal phalanx of left little finger, initial encounter for closed fracture (principal); S52.602A Unspecified fracture of lower end of left ulna, initial encounter for closed fracture; M79.89 Other specified soft tissue disorders; X58.XXXA Exposure to other specified factors, initial encounter; Y93.89 Activity, other specified; Y92.89 Other specified places as the place of occurrence of the external cause; Y99.8 Other external cause status

== ENCOUNTER → 2024-10-18 | Day surgery (SDC) | payer BC ==
[~2024-10-18] VITALS: Ht 167.6 cm; Wt 64.9 kg
[~2024-10-18] MED LIST changes: +ACETAMINOPHEN 100 ML IV ONE; +EPINEPHrine/Lidocaine Hydroc 20 ML VIAL ONE; +INSULIN LISPRO 1 UNIT/0.01 ML SQ ONE; +INSULIN REGULAR, HUMAN 1 UNIT/0.01 ML SC ONE; +Ketorolac Tromethamine 30 MG/ML VIAL IV ONE; +Lactated Ringer's Solution 1,000 ML IV ONE; +Lactated Ringer's Solution 1,000 ML IV SCH; +Midazolam Hydrochloride 2 MG/2 ML VIAL IV ONE; +PROPOFOL 200 MG/20 ML VIAL IV ONE; +Ropivacaine Hydrochloride 5 MG/ML 20 ML AMP IJ ONE; +SEVOFLURANE 250 ML BOT INH ONE; +ceFAZolin sodium 2GM/20ML IV ONE; +ceFAZolin sodium/sodium chlor 20 ML IV ONE; +fentaNYL CITRATE 100 MCG/2 ML VIAL IV ONE
[2024-10-18 08:05] VITALS: BP 126/66
[2024-10-18 08:06] LABS: BILIRUBIN Negative (Negative); BLOOD 1+ (Negative); CLARITY Turbid (Clear); COLOR Yellow (Yellow); GLUCOSE 3+ (Negative); KETONE Trace (Negative); LEUKO ESTERASE 2+ (Negative); NITRITE Negative (Negative); PH 5.5 (4.5-8.0); SPECIFIC GRAVITY 1.025 (1.001-1.030); UROBILINOGEN 0.2 E.U./dl (0.0-1.0)
[2024-10-18 09:02] LABS: BACTERIA 2+; RBC TNTC rbc/hpf (0-2); WBC TNTC wbc/hpf (0-5)
[2024-10-18 09:04] LABS: BUN 8 mg/dl (9-23); CHLORIDE 99 mmol/L (98-107); POTASSIUM 4.2 mmol/L (3.4-5.1)
[2024-10-18 13:36] VITALS: BP 117/64
[2024-10-18 13:51] VITALS: BP 124/65
[2024-10-18 14:06] VITALS: BP 125/65
[2024-10-18 14:21] VITALS: BP 122/67
[2024-10-18 14:35] VITALS: BP 118/66
== END | disposition home or self-care (01) ==
LOC: SDC 10-17 12:30
PROVIDERS: ATTEND Orthopaedic Surgery
DX: S42.332A Displaced oblique fracture of shaft of humerus, left arm, initial encounter for closed fracture (principal); S52.292A Other fracture of shaft of left ulna, initial encounter for closed fracture; I10 Essential (primary) hypertension; E10.9 Type 1 diabetes mellitus without complications; E07.9 Disorder of thyroid, unspecified; G89.18 Other acute postprocedural pain; Z91.018 Allergy to other foods; Z79.899 Other long term (current) drug therapy; Z82.49 Family history of ischemic heart disease and other diseases of the circulatory system; V43.62XA Car passenger injured in collision with other type car in traffic accident, initial encounter; Y93.89 Activity, other specified; Y92.488 Other paved roadways as the place of occurrence of the external cause; Y99.8 Other external cause status

== ENCOUNTER → 2024-10-31 | Outpatient (CLI) | payer BC ==
[~2024-10-31] MED LIST changes: -ACETAMINOPHEN 100 ML IV ONE; -EPINEPHrine/Lidocaine Hydroc 20 ML VIAL ONE; -INSULIN LISPRO 1 UNIT/0.01 ML SQ ONE; -INSULIN REGULAR, HUMAN 1 UNIT/0.01 ML SC ONE; -Ketorolac Tromethamine 30 MG/ML VIAL IV ONE; -Lactated Ringer's Solution 1,000 ML IV ONE; -Lactated Ringer's Solution 1,000 ML IV SCH; -Midazolam Hydrochloride 2 MG/2 ML VIAL IV ONE; -PROPOFOL 200 MG/20 ML VIAL IV ONE; -Ropivacaine Hydrochloride 5 MG/ML 20 ML AMP IJ ONE; -SEVOFLURANE 250 ML BOT INH ONE; -ceFAZolin sodium 2GM/20ML IV ONE; -ceFAZolin sodium/sodium chlor 20 ML IV ONE; -fentaNYL CITRATE 100 MCG/2 ML VIAL IV ONE
== END | disposition home or self-care (01) ==
LOC: ORTHO 00:55
PROVIDERS: ATTEND Orthopaedic Surgery
DX: S42.332A Displaced oblique fracture of shaft of humerus, left arm, initial encounter for closed fracture (principal); X58.XXXA Exposure to other specified factors, initial encounter; Y93.89 Activity, other specified; Y92.89 Other specified places as the place of occurrence of the external cause; Y99.8 Other external cause status

== ENCOUNTER → 2024-11-28 | Outpatient (CLI) | payer BC | END | disposition home or self-care (01) | LOC: ORTHO 02:46 | PROVIDERS: ATTEND Orthopaedic Surgery | DX: S52.232D Displaced oblique fracture of shaft of left ulna, subsequent encounter for closed fracture with routine healing (principal); S42.332D Displaced oblique fracture of shaft of humerus, left arm, subsequent encounter for fracture with routine healing; X58.XXXD Exposure to other specified factors, subsequent encounter ==

== ENCOUNTER → 2024-12-26 | Outpatient (CLI) | payer OTHER, BC | END | disposition home or self-care (01) | LOC: ORTHO 02:06 | PROVIDERS: ATTEND Orthopaedic Surgery | DX: S52.23 Oblique fracture of shaft of ulna (principal); S42.33 Oblique fracture of shaft of humerus; M81.8 Other osteoporosis without current pathological fracture; Z47.89 Encounter for other orthopedic aftercare; X58.XXXA Exposure to other specified factors, initial encounter; Y93.89 Activity, other specified; Y92.89 Other specified places as the place of occurrence of the external cause; Y99.8 Other external cause status ==

== ENCOUNTER → 2025-01-23 | Outpatient (CLI) | payer BC | END | disposition home or self-care (01) | LOC: ORTHO 02:36 | PROVIDERS: ATTEND Orthopaedic Surgery | DX: S52.232A Displaced oblique fracture of shaft of left ulna, initial encounter for closed fracture (principal); S42.332A Displaced oblique fracture of shaft of humerus, left arm, initial encounter for closed fracture; X58.XXXA Exposure to other specified factors, initial encounter; Y93.89 Activity, other specified; Y92.89 Other specified places as the place of occurrence of the external cause; Y99.8 Other external cause status ==

== ENCOUNTER → 2025-02-23 | Outpatient (CLI) | payer BC ==
[2025-02-23 11:25] LABS: BUN 7 mg/dl (9-23); FREE T4 1.30 ng/dl (0.89-1.76); LDL CHOLESTEROL 86 mg/dL (9-159); SGPT/ALT 16 U/L (5-49)
== END | disposition home or self-care (01) ==
LOC: LAB 10:24
PROVIDERS: Student in an Organized Health Care Education/Training Program; ATTEND Internal Medicine Endocrinology, Diabetes & Metabolism
DX: E10.65 Type 1 diabetes mellitus with hyperglycemia (principal); E78.2 Mixed hyperlipidemia; E06.3 Autoimmune thyroiditis

== ENCOUNTER → 2025-03-03 | Outpatient (CLI) | payer BC | END | disposition home or self-care (01) | LOC: ORTHO 04:52 | PROVIDERS: ATTEND Orthopaedic Surgery | DX: S42.332D Displaced oblique fracture of shaft of humerus, left arm, subsequent encounter for fracture with routine healing (principal); Z98.890 Other specified postprocedural states; X58.XXXD Exposure to other specified factors, subsequent encounter ==

== ENCOUNTER → 2025-04-19 | Outpatient (CLI) | payer BC | LOC: ORTHO 04-18 14:17 | PROVIDERS: ATTEND Orthopaedic Surgery | DX: S42.332A Displaced oblique fracture of shaft of humerus, left arm, initial encounter for closed fracture (principal); X58.XXXA Exposure to other specified factors, initial encounter; Y93.89 Activity, other specified; Y92.89 Other specified places as the place of occurrence of the external cause; Y99.8 Other external cause status ==

== ENCOUNTER → 2025-05-31 | Outpatient (CLI) | payer BC ==
[2025-05-31 13:16] LABS: BUN 7 mg/dl (9-23); FREE T4 1.14 ng/dl (0.89-1.76); LDL CHOLESTEROL 58 mg/dL (9-159); SGPT/ALT 11 U/L (5-49)
== END | disposition home or self-care (01) ==
LOC: LAB 11:54
PROVIDERS: Student in an Organized Health Care Education/Training Program; ATTEND Internal Medicine Endocrinology, Diabetes & Metabolism
DX: E10.65 Type 1 diabetes mellitus with hyperglycemia (principal)

== ENCOUNTER → 2025-07-19 | Outpatient (CLI) | payer BC | END | disposition home or self-care (01) | LOC: ORTHO 01:30 | PROVIDERS: ATTEND Orthopaedic Surgery | DX: S42.33 Oblique fracture of shaft of humerus (principal); X58.XXXA Exposure to other specified factors, initial encounter; Y93.89 Activity, other specified; Y92.89 Other specified places as the place of occurrence of the external cause; Y99.8 Other external cause status ==